=== PATIENT | male | born 1940 | race Caucasian/White ===

== ENCOUNTER → 2019-08-08 | Emergency (ER) | payer OTHER ==
[~2019-08-08] VITALS: Ht 188 cm; Wt 119.7 kg
[~2019-08-08] MED LIST: ALBU0.084 IN; ASPI-231 PO; FENO160T8 PO; FLUT100I IN; FLUT27.52; GLIP10TA9 PO; INSUINJ37 SUBCUT; LEVO175T31 PO; LOSA-69 PO; SIMV-13 PO; [UNRECOGNIZED DRUG - CODE] OP
[2019-08-08 09:21] VITALS: BP 151/62
[2019-08-08 10:03] LABS: Urine Bacteria FEW /hpf (None Seen); Urine Blood Negative /uL (Negative); Urine Hyaline Cast FEW /lpf (0 - 2); Urine Specific Gravity 1.012 (1.001-1.035); Urine WBC 2 /hpf (0 - 3)
== END | disposition home or self-care (01) ==
LOC: ER 05:17
DX: S80.212A Abrasion, left knee, initial encounter (principal); S80.211A Abrasion, right knee, initial encounter; J44.9 Chronic obstructive pulmonary disease, unspecified; E11.9 Type 2 diabetes mellitus without complications; E78.5 Hyperlipidemia, unspecified; I10 Essential (primary) hypertension; Z88.5 Allergy status to narcotic agent; Z88.0 Allergy status to penicillin; W19.XXXA Unspecified fall, initial encounter; Y93.89 Activity, other specified; Y92.009 Unspecified place in unspecified non-institutional (private) residence as the place of occurrence of the external cause; Y99.8 Other external cause status
CPT/HCPCS: 81001; 82962